=== PATIENT | male | born 1960 | race Caucasian/White ===

== ENCOUNTER → 2023-04-01 10:24 | Outpatient (CLI) | payer OTHER, SELFPAY ==
--- NOTE | ~2023-04-01 | XR_ITS ---
AP and lateral views of the left hip Clinical history: Pain Findings: No acute fracture or dislocation is seen. Osseous alignment is anatomic. The left hip joint and left SI joint are preserved. Soft tissues are unremarkable. Impression: No significant abnormality is seen. Reviewed, dictated and finalized at [facility]. Impression: No significant abnormality is seen.
== END ==
PROVIDERS: PCP Physician Assistant; Visit Provider Physician Assistant
DX: M25.552 Pain in left hip (principal)
CPT/HCPCS: 73502

== ENCOUNTER 2023-07-29 12:44 | Outpatient (CLI) | payer OTHER, SELFPAY ==
--- NOTE | ~2023-07-29 | XR_ITS ---
XR cervical spine 4-5V DATE: 07/29/2023 13:35 INDICATION: Neck and shoulder pain TECHNIQUE: Standing AP, swimmer's, lateral, open-mouth and odontoid views COMPARISON: None FINDINGS: There is minimal dextroscoliosis of the cervical and upper thoracic spine. C1 and C2 are normally aligned and the odontoid process is intact. Normal alignment of the cervical spine. No fracture or dislocation or locked facet or prevertebral so ft tissue swelling is evident. There is severe degenerative disc disease at C5-6 and moderately severe degenerative disc disease at C6-7 and C7-T1. Prominent uncovertebral joint spurring is noted at C5-6 and particularly, more prominent on the left. There is degenerative change at the apophyseal joints. IMPRESSION: Moderately prominent cervical spondylosis Reviewed, dictated and finalized at location B. S ARCHITECT
--- NOTE | ~2023-07-29 | XR_ITS ---
XR shoulder LT min 2V DATE: 07/29/2023 13:35 INDICATION: Shoulder pain TECHNIQUE: 4 views COMPARISON: None FINDINGS: No fracture or dislocation, periosteal reaction or bone destruction or abnormal soft tissue calcification. Levoscoliosis of the thoracic spine. Cervical spondylosis is noted. IMPRESSION: No significant abnormality of the left shoulder Thoracic levoscoliosis Cervical spondylosis Reviewed, dictated and finalized at location B. 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
== END 2023-07-29 12:45 ==
PROVIDERS: PCP Physician Assistant; Visit Provider Physician Assistant
DX: M47.812 Spondylosis without myelopathy or radiculopathy, cervical region (principal); M41.9 Scoliosis, unspecified
CPT/HCPCS: 72050; 73030

== ENCOUNTER 2024-10-25 12:58 | Outpatient (CLI) | payer OTHER, SELFPAY ==
--- NOTE | ~2024-10-25 | XR_ITS ---
3 VIEWS LUMBAR SPINE Ordering provider: Salima Ramos, PA History: . Lumbar back pain . Comparison: None. FINDINGS: VERTEBRAL BODIES: No visible fracture or subluxation. Degenerative changes of the spine. DISK SPACES: Normal. Narrowing of the disc L3-L4, L4-L5 and L5-S1. SOFT TISSUES: Normal. IMPRESSION: No acute osseous abnormality lumbar spine. Multilevel degenerative disc disease. Reviewed, dictated and finalized at location A.
== END 2024-10-25 12:59 | disposition home or self-care (01) ==
PROVIDERS: PCP Physician Assistant; Visit Provider Physician Assistant
DX: M51.369 Other intervertebral disc degeneration, lumbar region without mention of lumbar back pain or lower extremity pain (principal); M51.379 Other intervertebral disc degeneration, lumbosacral region without mention of lumbar back pain or lower extremity pain
CPT/HCPCS: 72100

== ENCOUNTER 2025-02-14 14:42 | Outpatient (CLI) | payer OTHER, SELFPAY ==
--- NOTE | ~2025-02-14 | CT_ITS ---
Non-contrast CT scan of the Abdomen and Pelvis Clinical indication: Abdominal pain, weight loss Technique: 2.5 mm axial scans were obtained through the abdomen and pelvis without intravenous or oral contrast. Dose reduction technique was used on this scan by utilizing automated exposure control and iterative reconstruction technique. The dose-length product (DLP) was 517.15 mGy-cm. Findings: Images through the lung bases reveal extensive, advanced cystic bronchiectatic changes. Multiple small hepatic cysts are probably present. The spleen, pancreas, gallbladder, kidneys, and adrenals appear normal. There is no aortic aneurysm. There is no evidence of bowel obstruction. Images through the pelvis were performed. There is no evidence of ascites or lymphadenopathy. Urinary bladder unremarkable. Prostate gland is enlarged. Impression: Extensive cystic bronchiectasis throughout the visualized lung bases. Prostatomegaly. Reviewed, dictated and finalized at [facility]. Impression: Extensive cystic bronchiectasis throughout the visualized lung bases. Prostatomegaly.
== END 2025-02-14 14:43 | disposition home or self-care (01) ==
LOC: MICIMG 14:43
PROVIDERS: PCP Physician Assistant; Visit Provider Internal Medicine
DX: J47.9 Bronchiectasis, uncomplicated (principal); N40.0 Benign prostatic hyperplasia without lower urinary tract symptoms; R76.0 Raised antibody titer; R10.9 Unspecified abdominal pain; R63.4 Abnormal weight loss
CPT/HCPCS: 74176